=== PATIENT | male | born 1975 | race Caucasian/White ===

== ENCOUNTER 2017-10-24 16:42 | Emergency (ER) | payer BC ==
[~2017-10-24] VITALS: Ht 180.3 cm; Wt 81.7 kg
[2017-10-24 17:18] LABS: HEMATOCRIT 44.1 % (38.0-50.0); HEMOGLOBIN 15.6 G/DL (12.5-16.6); MCH 32.2 PG (29.0-34.0); MCHC 35.4 G/DL (30.0-36.0); MCV 90.9 FL (86-99); PLATELET COUNT 204 K/uL (156-360); RBC DIS.WIDTH-CV 12.6 % (11.8-14.6); RBC DIS.WIDTH-SD 41.6 % (39-53); RED BLOOD COUNT 4.85 M/uL (4.00-5.50); WHITE BLOOD COUNT 9.2 K/uL (4.1-10.2)
[2017-10-24 17:28] LABS: CHLORIDE 105 mEq/L (99-109); SODIUM 141 mEq/L (136-147)
[2017-10-24 17:30] LABS: GLUCOSE 99 mg/dL (70-99)
[2017-10-24 17:33] LABS: CREATININE 1.2 mg/dL (0.6-1.3)
[2017-10-24 17:34] LABS: GFR ESTIMATE (CALCULATED) > 59 mL/min/ (58.99-99999); UREA NITROGEN (BUN) 14 mg/dL (9-23)
[2017-10-24 17:40] LABS: TROP-I INTERPRETATION NEGATIVE; TROPONIN-I < 0.01 ng/mL (0.0-0.30)
[2017-10-24 19:51] LABS: D-DIMER ELISA < 150.00 ng/mLDDU (<230)
[2017-10-24 20:20] LABS: TROP-I INTERPRETATION NEGATIVE; TROPONIN-I < 0.01 ng/mL (0.0-0.30)
[2017-10-24] MEDS ORDERED: MOTRIN800 MG PO (20:39)
[2017-10-24 21:10] VITALS: BP 126/83
== END 2017-10-24 21:10 | disposition home or self-care (01) ==
LOC: EME 16:42
PROVIDERS: Physician Assistant
DX: R07.9 Chest pain, unspecified (principal); M79.602 Pain in left arm; R07.1 Chest pain on breathing; I49.9 Cardiac arrhythmia, unspecified
CPT/HCPCS: 71046; 80048; 84484; 85027; 85379; 93005; 99281; 99285